=== PATIENT | female | born 1960 | race Caucasian/White ===

== ENCOUNTER 2023-08-26 15:57 | Outpatient (CLI) | payer OTHER, SELFPAY ==
[2023-08-26 16:37] LABS: CRP 9.8 mg/dL (0.0-0.9)
[2023-08-26 17:37] LABS: Erythrocyte Sedimentation Rate 43 mm/hr (0-20)
== END 2023-08-26 15:58 | disposition home or self-care (01) ==
LOC: CHSLAB 16:07
DX: T84.84XA Pain due to internal orthopedic prosthetic devices, implants and grafts, initial encounter (principal); T14.8XXA Other injury of unspecified body region, initial encounter; Z96.649 Presence of unspecified artificial hip joint
CPT/HCPCS: 36415; 85652; 86140

== ENCOUNTER 2024-08-17 11:50 | Emergency (ER) | payer OTHER, SELFPAY ==
--- NOTE | ~2024-08-17 | XR_ITS ---
XR hand LT min 3V 08/17/2024 12:23 Indication: Left hand pain Procedure: 3 views left hand Comparison: No prior studies for comparison. Findings: No fracture, subluxation or dislocation. There is anatomic alignment. No significant soft t issue abnormality. No foreign bodies. Impression: 1: No significant bone or joint abnormality. Reviewed, dictated and finalized at location A. Impression: 1: No significant bone or joint abnormality.
[2024-08-17 11:50] VITALS: BP 182/100; PULSE 92; RESP 16; TEMP 36.2; O2SAT 100
--- OUTSIDE RECORDS SUMMARY | 2024-08-17 12:00 | XMS_ITS | Clinical Summary ---
Author Organization [facility] Address [address] [place] [address] Care Team Providers Care Scheduling Assistant Name Role Phone Priscila Singleton APRN, PROFESSOR OF RADIOLOGY Unavailable [phone] Vi Oliveira DO Primary Care Provider [phone] Allergies No known active allergies Medications amitriptyline (ELAVIL) 25 MG Tablet Take 25 mg by mouth daily. Active amitriptyline (ELAVIL) 50 MG Tablet Take 50 mg by mouth nightly. Active Ascorbic Acid (Vitamin C) 1000 MG Tablet Take 1 Tablet by mouth daily. Active atorvastatin (LIPITOR) 40 MG Tablet Take 40 mg by mouth nightly. Active BIOTIN FORTE PO Take 1 Tablet by mouth daily. Active CALCIUM PO Take 1 Tablet by mouth daily. Active Cholecalciferol (Vitamin D) 2000 UNIT Tablet Take 1 Tablet by mouth nightly. Active levothyroxine (SYNTHROID) 137 MCG Tablet Take 137 mcg by mouth every morning (before breakfast). Active lisinopril (PRINIVIL, ZESTRIL) 5 MG Tablet Take 5 mg by mouth daily. Active Multiple Vitamin (MULTIVITAMIN PO) Take 1 Capsule by mouth daily. Active [place]-3 Fatty Acids (FISH OIL PO) Take 1 Capsule by mouth daily. Active omeprazole (PriLOSEC) 40 MG CAPSULE DELAYED RELEASE Take 40 mg by mouth daily. Active Potassium 99 MG Tablet Take 1 Tablet by mouth daily. Active propranolol (INDERAL LA) 120 MG CAPSULE SR 24 HR Take 120 mg by mouth nightly. Active vitamin B complex (DEXFOL) Tablet Take 1 Tablet by mouth nightly. Active VITAMIN E PO Take 1,000 Units by mouth daily. Active Social History Tobacco Use Types Packs/Day Years Used Date Smoking Tobacco: Former Cigarettes 2 25 1 982 - 2007 Smokeless Tobacco: Never Comments Unknown Sex and Gender Information Value Date Recorded Sex Assigned at Not on file Legal Sex Female 7:57 PM CDT Gender Identity Not on file Sexual Orientation Not on file Last Filed Vital Signs Vital Sign Reading Time Taken Comments Blood Pressure 160/100 07/06/2023 10:53 AM CDT Pulse 71 07/06/2023 10:53 AM CDT Temperature 36.2 C (97.2 F) 07/06/2023 10:53 AM CDT Respiratory Rate 16 07/06/2023 10:53 AM CDT Oxygen Saturation 96% 07/06/2023 10:53 AM CDT Inhaled Oxygen Concentration - - Weight 113.9 kg (251 lb) 07/10/2023 5:07 PM CDT Height 170.2 cm (5' 7) 07/10/2023 5:07 PM CDT Body Mass Index 39.31 07/10/2023 5:07 PM CDT Plan of Treatment Health Maintenance Due Date Last Done Comments Hepatitis C Virus (HCV) Screening 1962 Pap Smear 08/12/1983 Cervical Cancer Screening (CCS) 1992 HPV/Cotest 1992 Cologuard 2012 Immunochemical Fecal Occult Blood 2012 Mammogram 08/27/2023 08/26/2022, 1203/2019, 02/10/2020, Additional history exists SARS-COV-2 Immunization ( season) 2023 01/28/2023, 04/03/2021, 06/26/2020, Additional history exists Influenza Immunization (Season Ended) 2024 01/16/2022, 01/03/2021, 12/15/2019, Additional history exists Colonoscopy 05/19/2032 05/19/2022 Colorectal Cancer Screening 05/19/2032 05/19/2022 TdaP Immunization Completed 10/18/2013 Pneumococcal Immunization (50+ years) Completed 01/16/2022 Pneumococcal Immunization Combined Discontinued 01/16/2022 Respiratory Syncytial Virus (RSV) Immunization (Adult) Completed 01/28/2023 Zoster Immunization Completed 03/30/2023, 3 Hepatitis B Immunization Aged Out No longer eligible based on patient's age to complete this topic Human Papillomavirus (HPV) Immunization Aged Out No longer eligible based on patient's age to complete this topic Meningococcal Immunization (ACWY) Aged Out No longer eligible based on patient's age to complete this topic Rotavirus Immunization Aged Out No lo nger eligible based on patient's age to complete this topic Insurance [facility] Care Teams Scheduling Assistant Relationship Specialty Start Date End Date Vi Oliveira DO [address] [place] [address] PCP - General Primary Care 06/26/23 Priscila Singleton, [employer], PROFESSOR OF RADIOLOGY [address] [facility], [address] [place] [address] Nurse Practitioner Cardiology 06/26/23
--- OUTSIDE RECORDS SUMMARY | 2024-08-17 12:00 | XMS_ITS | Referral Summary ---
Author Organization [facility] Address [address] [place] [address] Care Team Providers Care Supervisor Fabrication Department Name Role Phone Kirby Resendiz MD Unavailable [phone] Karla Valle MD Unavailable Brendon Kapoor MD Unavailable Mannie Eden MD Unavailable [phone] Jie Boone Unavailable Bruno Ortega MD Unavailable Shakira Rivas NP Primary Care Provider Encounters Date Type Department Care Team Description 07/21/2024 Telephone [facility] [address] [facility] [address] [place] [address] Michelle Eli 07/20/2024 Telephone [facility] [address] [facility] [address] [place] [address] Michelle Eli 07/18/2024 Orders Only [facility] [place] [address] [facility] [address] [place] [address] Shakira Rivas NP Well woman exam (Primary Dx) 07/18/2024 4:00 PM CDT Office Visit [facility] Primary Care at [address] [place] [address] Shakira Rivas NP Establishing care with new doctor, encounter for (Primary Dx); Primary hypertension; Pre-diabetes; Acquired hypothyroidism; Pure hypercholesterolemia ; Irritable bowel syndrome with diarrhea; Gastroesophageal reflux disease, unspecified whether esophagitis present; Class 3 severe obesity due to excess calories without serious comorbidity with body mass index (BMI) of 40.0 to 44.9 in adult 06/14/2024 Results Follow-Up [facility] [address] [place] [address] Medical Office Building [address], [address] [place] [address] Cheryl Joy RN Surgical pathology 06/13/2024 8:00 AM CDT - 06/13/2024 8:30 AM CDT Surgery [facility] [address] [place] [address] [phone] Kirby Resendiz MD COLON REMOVAL SNARE 06/13/2024 7:59 AM CDT Anesthesia Event [facility] [address] [place] [address] [phone] Ghanshyam Sanders MD 06/13/2024 6:56 AM CDT - 06/13/2024 9:00 AM CDT Hospital Encounter [facility] [address] [place] [address] [phone] Kirby Resendiz MD Hx of colonic polyps Discharge Disposition: Discharge to home or self care from Last 3 Months Allergies No known active allergies Medications biotin 5,000 mcg tablet,disintegrating 1 tab daily 0 0 05/13/19 17 Active calcium (CALCIO SHAIELSH) 500 mg tablet 500 mg. 0 12/04/19 12 Active multivitamin capsuleIndications:Gabbie min Deficiency Prevention Take 1 capsule by mouth nightly Active vitamin b complex tabletIndications:Vitam in Deficiency Prevention Take 1 tablet by mouth nightly Active cholecalciferol (VITAMIN D-3) 2000 unit capsuleIndications:prev ent Vit D deficiency Take 1 capsule (2,000 Units total) by mouth nightly Active ascorbic acid (VITAMIN C) 1,000 mg tablet Take 1 tablet (1,000 mg total) by mouth daily Active potassium 99 mg tablet Take by mouth Active vitamin E 1,000 unit capsuleIndications:[employer] Take 1 capsule (1,000 Units total) by mouth nightly 11/06/19 24 029 Active omega 9-lyl-lxz-fish oil 1,000 mg (120 mg-180 mg) capsuleIndications:uberVU [facility] [employer] Take 1 capsule (1,000 mg total) by mouth nightly 11/06/19 24 029 Active lisinopriL (PRINIVIL,ZESTRIL) 5 mg tabletIndications:Prima ry hypertension TAKE ONE TABLET BY MOUTH DAILY 90 tablet 3 01/08/20 24 Active amitriptyline (ELAVIL) 25 mg tablet TAKE ONE TABLET BY MOUTH EVERY MORNING 30 tablet 6 04/11/19 25 Active sodium, potassium & mag sulfates (SUPREP BOWEL KIT) 17.5-3.13-1.6 gram recon solnIndications:Bowel Evacuation PLEASE TAKE THE 1ST BOTTLE AT 6 PM THE DAY BEFORE THE PROCEDURE AND THE SECOND BOTTLE 6 HOURS BEFORE LEAVING HOME IN THE MORNING 354 mL 04/21/19 25 Active loperamide (IMODIUM) 2 mg capsule TAKE ONE CAPSULE BY MOUTH FOUR TIMES A DAY NEEDED 30 capsule 6 06/16/19 25 Active omeprazole (PriLOSEC) 40 mg capsule TAKE ONE CAPSULE BY MOUTH DAILY 30 capsule 3 06/16/19 25 Active amitriptyline (ELAVIL) 50 mg tabletIndications:Irrit able bowel syndrome with diarrhea TAKE ONE TABLET BY MOUTH BEDTIME 30 tablet 6 07/14/19 25 Active levothyroxine (SYNTHROID) 137 mcg tabletIndications:Acqui red hypothyroidism Take 1 tablet (137 mcg total) by mouth electrical contacts adjuster before breakfast 90 tablet 3 07/19/19 25 026 Active atorvastatin (LIPITOR) 40 mg tabletIndications:Pure hypercholesterolemia Take 1 tablet (40 mg total) by mouth daily 90 tablet 3 07/19/19 25 026 Active Active Problems Problem Noted Date Diagnosed Date Hx of colonic polyps 04/21/2024 S/P hip replacement, right 03/30/2024 Pre-diabetes 09/28/2023 Assessment & Plan (07/18/2024 4:20 PM CDT): Lab Results Component Value Date HGBA1C 5.9 (H) 04/05/2024 -chronic, controlled -patient currently does not require medication -most recent hemoglobin A1c shown above -will recheck lab work -continue current treatment plan Assessment & Plan (03/30/2024 4:00 PM DRAFTER PLUMBING): - chronic condition - noted on chart review - patient reports family history of diabetes - will continue to monitor close - has outstanding labs to be done after this visit, continue current management Lab Results Component Value Date HGBA1C 5.8 (H) 06/18/2023 HGBA1C 5.9 (H) 01/27/2023 HGBA1C 5.9 (H) 01/20/2022 Lab Results Component Value Date MICROALBUR <2.0 12/18/2016 LDLCALC 61 01/27/2023 CREATININE 0.83 11/06/2023 Assessment & Plan (09/28/2023 4:51 PM CDT): - chronic condition - noted on chart review - patient reports family history of diabetes - will continue to monitor close Lab Results Component Value Date HGBA1C 5.8 (H) 06/18/2023 HGBA1C 5.9 (H) 01/27/2023 HGBA1C 5.9 (H) 01/20/2022 Lab Results Component Value Date MICROALBUR <2.0 12/18/2016 LDLCALC 61 01/27/2023 CREATININE 0.76 06/18/2023 Abnormal resting ECG findings 06/22/2023 Primary hypertension 02/07/2023 Assessment & Plan (07/18/2024 4:12 PM CDT): BP Readings from Last 3 Encounters: 07/18/24 124/82 06/13/24 (!) 171/78 03/30/24 140/70 -chronic, at goal of <140/90 -currently taking lisinopril 5 mg daily -patient reports checking blood pressure regularly at home which has been doing good -encourage patient to continue low-sodium diet -Will trial holding lisinopril, encouraged patient to reach out to office if blood pressure consistently runs over 140/90 -continue current treatment plan Assessment & Plan (03/30/2024 4:00 PM DRAFTER PLUMBING): Blood Pressure Management BP Readings from Last 3 Encounters: 03/30/24 140/70 11/12/23 139/76 11/06/23 142/52 Chronic condition Status - is adequately controlled. Current medications are: Lisinopril 5 mg daily only (states she was started prior to getting hip replacement, thinks she does not need at, reports good home blood pressure readings) Patient is compliant with medications. Patient denies any side effects or adverse side effects from the medication/s. Follow a low salt diet Monitor blood pressure regularly at home - has outstanding labs to be done after this visit, continue current management The 10-year ASCVD risk score (Eryn PARRISH, et al., 2019) is: 5.5% Values used to calculate the score: Age: 63 years Sex: Female Is Non- : No Diabetic: No Tobacco smoker: No Systolic Blood Pressure: 140 mmHg Is BP treated: Yes HDL Cholesterol: 42 mg/dL Total Cholesterol: 147 mg/dL Lab Results Component Value Date LDLCALC 61 01/27/2023 Lab Results Component Value Date GLUCOSE 115 11/06/2023 CALCIUM 8.8 11/06/2023 SODIUM 141 11/06/2023 POTASSIUM 4.2 11/06/2023 CO2 25 11/06/2023 CHLORIDE 104 11/06/2023 BUNSER 13 11/06/2023 CREATININE 0.83 11/06/2023 Assessment & Plan (09/28/2023 3:52 PM CDT): Blood Pressure Management BP Readings from Last 3 Encounters: 09/28/23 120/60 09/24/23 139/85 09/08/23 161/97 Chronic condition Status - is adequately controlled. Current medications are: Lisinopril 5 mg daily only (states she was started prior to getting hip replacement, thinks she does not need at, reports good home blood pressure readings) Patient is compliant with medications. Patient denies any side effects or adverse side effects from the medication/s. Follow a low salt diet Monitor blood pressure regularly at home Continue current management unless change made above The 10-year ASCVD risk score (Eryn PARRISH, et al., 2019) is: 4.1% Values used to calculate the score: Age: 63 years Sex: Female Is Non- : No Diabetic: No Tobacco smoker: No Systolic Blood Pressure: 120 mmHg Is BP treated: Yes HDL Cholesterol: 42 mg/dL Total Cholesterol: 147 mg/dL Lab Results Component Value Date LDLCALC 61 01/27/2023 Lab Results Component Value Date GLUCOSE 81 06/18/2023 CALCIUM 9.2 06/18/2023 SODIUM 140 06/18/2023 POTASSIUM 4.4 06/18/2023 CO2 28 06/18/2023 CHLORIDE 103 06/18/2023 BUNSER 14 06/18/2023 CREATININE 0.76 06/18/2023 Assessment & Plan (02/07/2023 1:24 PM DRAFTER PLUMBING): Elevated, trial of lisinopril. BP goal < 140/90. Simple chronic bronchitis 01/16/2022 Assessment & Plan (01/22/2022 8:23 PM DRAFTER PLUMBING): Asymptomatic. At baseline. Cont current meds. Class 3 severe obesity due t o excess calories without serious comorbidity with body mass index (BMI) of 40.0 to 44.9 in adult 01/15/2021 Assessment & Plan (07/18/2024 4:20 PM CDT): Wt Readings from Last 3 Encounters: 07/18/24 118.6 kg (261 lb 6.4 oz) 06/13/24 117.9 kg (260 lb) 03/30/24 116.1 kg (256 lb) Body mass index is 40.93 kg/m . -Stable, not at goal of <30 bmi -Discussed recommendations for exercise at least 30 minutes moderate to vigorous exercise as tolerated most days of the week. (minimum 150 minutes weekly) -Discussed importance of well-balanced diet Assessment & Plan (03/30/2024 3:46 PM DRAFTER PLUMBING): Wt Readings from Last 3 Encounters: 03/30/24 116.1 kg (256 lb) 11/12/23 110.7 kg (244 lb) 11/06/23 110.8 kg (244 lb 3.2 oz) Body mass index is 38.93 kg/m . - chronic condition, not at goal, some weight gainnoted - BMI Follow-up includes: nutrition counseling, exercise counseling and education provided - Recommend to exercise at least 30 minutes moderate to vigorous exercise most days of the week. (minimum 150 minutes weekly) - Comorbidity - hypertension, hyperlipidemia Assessment & Plan (09/28/2023 3:54 PM CDT): Wt Readings from Last 3 Encounters: 09/28/23 110.6 kg (243 lb 12.8 oz) 09/24/23 111.1 kg (245 lb) 09/08/23 109.3 kg (241 lb) Body mass index is 40.57 kg/m . - chronic condition, not at goal - BMI Follow-up includes: nutrition counseling, exercise counseling and education provided - Recommend to exercise at least 30 minutes moderate to vigorous exercise most days of the week. (minimum 150 minutes weekly) - Comorbidity - hypertension, hyperlipidemia Assessment & Plan (02/07/2023 1:22 PM DRAFTER PLUMBING): Weight reduction, daily exercise and dietary modifications recommended., as obesity can complicate their hypercholesterolemia Assessment & Plan (07/23/2022 10:43 AM CDT): Weight reduction, daily exercise and dietary modifications recommended., as obesity can complicate their hypercholesterolemia Assessment & Plan (01/22/2022 8:23 PM DRAFTER PLUMBING): Weight reduction, daily exercise and dietary modifications recommended., as obesity can complicate their hypercholesterolemia Assessment & Plan (01/15/2021 5:46 PM CDT): Weight reduction, daily exercise and dietary modifications recommended. GERD (gastroesophageal reflux disease) Assessment & Plan (07/18/2024 4:22 PM CDT): -chronic, controlled -patient currently takes omeprazole 40 mg daily -Follows with GI -patient encouraged to continue avoiding trigger foods and remaining upright at least 30 minutes after eating or drinking -continue current treatment plan Migraine without aura and wi thout status migrainosus, not intractable 09/07/2020 Assessment & Plan (03/30/2024 3:51 PM DRAFTER PLUMBING): - chronic condition, stable status - no longer using Propranolol LA 120 mg nightly - currently on Amitriptyline 50 mg nightly and 25 mg am via GI provider The current medical regimen is effective; continue present plan and medications. Assessment & Plan (09/28/2023 4:01 PM CDT): - chronic condition, stable status - no longer using Propranolol LA 120 mg nightly - currently on Amitriptyline 50 mg nightly and 25 mg am via GI provider - continue current management Assessment & Plan (07/23/2022 10:46 AM CDT): Stable. Cont. Current prescription medications, Maxalt. Assessment & Plan (01/22/2022 8:23 PM DRAFTER PLUMBING): Clinically improved, continue current prescription medications. Assessment & Plan (01/15/2021 5:45 PM CDT): Stable. Cont. Current prescription medications. Assessment & Plan (09/07/2020 5:08 PM CDT): Improved. Cont current mgmt. Irritable bowel syndrome with diarrhea 7 Overview (03/30/2024): Follows with GI Assessment & Plan (07/18/2024 4:21 PM CDT): -Chronic, controlled -Currently takes amitriptyline 25 mg in the morning, 50 mg at night, Imodium 2 mg daily -Follows with GI -Up-to-date on colonoscopies -Continue current treatment plan with specialists Assessment & Plan (03/30/2024 3:54 PM DRAFTER PLUMBING): - chronic condition, stable - follows with GI - amitriptyilne 50 mg night and 25 mg in the am from Gi provider,for pain and discomfort, on Omeprazole 40 mg daily for GERD, Loperamide/imodium as needed for diarrhea - The current medical regimen is effective; continue present plan and medications. Assessment & Plan (09/28/2023 3:59 PM CDT): - follows with GI - amitriptyilne 50 mg night and 25 mg in the am from Gi provider,for pain and discomfort, on Omeprazole 40 mg daily for GERD, Loperamide/imodium as needed for diarrhea H/O gastric ulcer 12/18/2016 Assessment & Plan (03/30/2024 3:58 PM DRAFTER PLUMBING): - hx of gastric ulcer, reportedly secondary to H, Pylori - follows with GI - currently on omeprazole 40 mg daily - The current medical regimen is effective; continue present plan and medications. Assessment & Plan (09/28/2023 4:49 PM CDT): - hx of gastric ulcer, reportedly secondary to H, Pylori - follows with GI - currently on omeprazole 40 mg daily Assessment & Plan (09/07/2020 5:10 PM CDT): Asx. Cont current meds. Vitamin D deficiency 05/27/2016 Overview (04/06/2024): 04/09 - For your vitamin D please increase your vitamin D from 2000 international units daily to 4000 international units daily Assessment & Plan (09/28/2023 3:56 PM CDT): Chronic condition, well controlled Asymptomatic, Most recent labs as shown below continue vitaming D 2000 international units daily supplements. Lab Results Component Value Date 25HYDROVITD 47 01/27/2023 25HYDROVITD 47 07/22/2022 25HYDROVITD 39 09/07/2020 25HYDROVITD 23 (L) 05/15/2016 Assessment & Plan (02/07/2023 1:21 PM DRAFTER PLUMBING): Asymptomatic, continue vit d supplements. Assessment & Plan (07/23/2022 10:45 AM CDT): Asx. Cont vitamin D supplement. Labs ordered, will follow. Pure hypercholesterolemia 05/13/2016 Assessment & Plan (07/18/2024 4:11 PM CDT): -chronic, controlled -currently takes atorvastatin 40 mg -Discussed importance of well-balanced diet -will recheck lab values at future visits -refill of medication provided -continue current treatment plan Assessment & Plan (03/30/2024 3:47 PM DRAFTER PLUMBING): - chronic condition - status: is adequately controlled. - current management/medications: Atorvastatin 40 mg nightly - other comorbid conditions:obesity, hypertension - patient is compliant with medications. - most recent LDL as shown below - maintain a healthy weight, diet - will monitor closely - continue current management Lab Results Component Value Date LDLCALC 61 01/27/2023 Lab Results Component Value Date ALT 35 11/05/2023 AST 25 11/05/2023 ALKPHOS 114 11/05/2023 BILITOT 0.3 11/05/2023 Assessment & Plan (09/28/2023 3:55 PM CDT): - chronic condition - status: is adequately controlled. - current management/medications: Atorvastatin 40 mg nightly - other comorbid conditions:obesity, hypertension - patient is compliant with medications. - most recent LDL as shown below - maintain a healthy weight, diet - will monitor closely - continue current management Lab Results Component Value Date LDLCALC 61 01/27/2023 Lab Results Component Value Date ALT 33 06/18/2023 AST 25 06/18/2023 ALKPHOS 108 06/18/2023 BILITOT 0.3 06/18/2023 Assessment & Plan (02/07/2023 1:20 PM DRAFTER PLUMBING): LDL at goal of less than 100, continue current prescription medications, atorvastatin. Assessment & Plan (07/23/2022 10:47 AM CDT): LDL at goal of less than 100, continue current prescription medications, atorvastatin. Assessment & Plan (01/22/2022 8:24 PM DRAFTER PLUMBING): LDL at goal of less than 100, continue current prescription medications. Assessment & Plan (01/15/2021 5:45 PM CDT): LDL at goal of less than 100. Continue current prescription medications. Assessment & Plan (09/07/2020 5:08 PM CDT): LDL is in a great range, cont current mgmt. Cyst of ovary 05/13/2016 Overview (06/21/2016): Cyst of ovary, unspecified laterality History of malignant neoplas m of rectum, rectosigmoid junction, and anus 05/13/2016 Assessment & Plan (03/30/2024 3:55 PM DRAFTER PLUMBING): - Personal hx-rectal/anal malignancy, H/o chemo and radiation therapy in 2007 at age <50 - follows with GI provider - up to date with colonoscopy, see below, repeat Colonoscopy due on 05/2024 reminder provided Colonoscopy 05/2022 Impression: - Diverticulosis in the recto-sigmoid colon and in the sigmoid colon. - The examination was otherwise normal on direct and retroflexion views. Recommendation: - Return to referring physician as previously scheduled. - Repeat colonoscopy in 2 years for surveillance. Assessment & Plan (09/28/2023 4:50 PM CDT): - Personal hx-rectal/anal malignancy, H/o chemo and radiation therapy in 2007 at age <50 - follows with GI provider - up to date with colonoscopy, see below Colonoscopy 05/2022 Impression: - Diverticulosis in the recto-sigmoid colon and in the sigmoid colon. - The examination was otherwise normal on direct and retroflexion views. Recommendation: - Return to referring physician as previously scheduled. - Repeat colonoscopy in 2 years for surveillance. Solitary pulmonary nodule 05/13/2016 Assessment & Plan (09/07/2020 5:09 PM CDT): Failed to follow-up with pulmonology. Encouraged patient to follow-up with pulmonology. Recurrent herpes labialis 05/13/2016 Liver lesion, right lobe 10/25/2015 Overview (09/07/2020): 1.[address] MR ordered. Ovarian cyst, left 10/25/2015 Overview (09/07/2020): 5.[address] scan. Pelvic ultrasound ordered. Will refer to game moderator Incidental pulmonary nodule, > 3mm and < 8mm 01/2016 Overview (09/07/2020): 5 mm right middle lobe. Radiologist recommends 1 year f/u ct Acquired hypothyroidism 03/15/2013 Assessment & Plan (07/18/2024 4:12 PM CDT): Lab Results Component Value Date TSH 0.94 04/05/2024 -chronic, controlled -patient currently takes Synthroid 137 mcg daily -Follows with endocrinology -most recent TSH within normal range -Will recheck lab values at next visit -refill of medication provided -continue current treatment plan Assessment & Plan (03/30/2024 4:00 PM DRAFTER PLUMBING): Chronic condition. Asymptomatic. Stable. Continue current prescription medications, levothyroxine 137 mcg daily. - has outstanding labs to be done after this visit, continue current management Lab Results Component Value Date TSH 3.41 01/27/2023 Assessment & Plan (09/28/2023 3:50 PM CDT): Chronic condition. Asymptomatic. Stable. Continue current prescription medications, levothyroxine 137 mcg daily. Lab Results Component Value Date TSH 3.41 01/27/2023 Assessment & Plan (02/07/2023 1:20 PM DRAFTER PLUMBING): Asymptomatic. Stable. Continue current prescription medications, levothyroxine. Assessment & Plan (07/23/2022 10:46 AM CDT): Stable. Cont. Current prescription medications, levothyroxine. Assessment & Plan (01/22/2022 8:23 PM DRAFTER PLUMBING): Asymptomatic. Stable. Continue current prescription medications. Assessment & Plan (01/15/2021 5:45 PM CDT): Asymptomatic. Stable. Continue current prescription medications. Assessment & Plan (09/07/2020 5:08 PM CDT): Stable. Cont. Current meds. Resolved Problems Problem Noted Date Diagnosed Date Resolved Date Wound infection 11/06/2023 03/30/2024 Aftercare following right hi p joint replacement surgery 08/27/2023 09/28/2023 Primary osteoarthritis of hip 06/22/2023 09/28/2023 Pain of right hip 07/23/2022 09/28/2023 Assessment & Plan (07/23/2022 10:43 AM CDT): Xrays ordered, will follow. Acute pain of right knee 07/23/2022 Assessment & Plan (07/23/2022 10:43 AM CDT): Xrays ordered, will follow. Anal fissure 06/03/2021 01/16/2022 Overview (06/03/2021): Added automatically from request for surgery [id number] Elevated LFTs 01/15/2021 09/28/2023 Assessment & Plan (02/07/2023 1:21 PM DRAFTER PLUMBING): ALT near normal, asymptomatic, will continue to follow. Assessment & Plan (01/15/2021 5:45 PM CDT): Asymptomatic. Patient has a known diagnosis of fatty liver. Will follow. Anal pain 12/07/2020 01/16/2022 Abnormal mammogram of both breasts 04/05/2020 09/28/2023 Diarrhea 12/27/2019 09/07/2020 BRBPR (bright red blood per rectum) 12/27/2019 07/22/2022 Encounter for colonoscopy du e to history of colon cancer 09/08/2019 09/07/2020 Overview (09/08/2019): Added automatically from request for surgery [id number] Thoracic arthritis 05/23/2019 4 Lung cyst 05/23/2019 09/07/2020 Bloating 06/11/2018 09/07/2020 Other constipation 06/11/2018 1 Depression with anxiety 03/31/2018 0607/2020 Situational mixed anxiety an d depressive disorder 12/04/2017 01/22/2023 Adjustment insomnia 10/01/2017 09/28/19 24 Right carpal tunnel syndrome 04/07/2017 09/28/2023 Migraine without aura and wi thout status migrainosus, not intractable 12/18/2016 09/07/2020 Gastric ulcer 12/18/2016 09/07/2020 Abdominal pain 12/18/2016 09/07/2020 Chronic low back pain 12/18/20162024 History of therapeutic radiation 09/05/2016 10/01/2017 Hypertriglyceridemia 05/27/2016 021 Overview (08/08/2016): Hypertriglyceridemia Breast neoplasm screening status 05/13/2016 12/18/2016 Overview (06/21/2016): Breast cancer screening Asymptomatic varicose veins 07/30/2013 09/28/2023 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 03/15/2013 09/28/2023 Generalized osteoarthritis 03/15/2013 0 09/28/2023 Immunizations Immunization Administration Dates Next Due Influenza, Quadrivalent, Spl it, Preservative Free, Intradermal 01/15/2016 Influenza, Quadrivalent, Spl it, Preservative Free, Intramuscular 01/16/2022,11/16/2018,12/03/2017,12/18 Influenza, Split 11/28/2010 Influenza, Trivalent, IM (MDV) 5,01/04/2014,01/23/2013,12/11 Influenza, Trivalent, Preser vative Free, Intramuscular 03/30/2024,11/14/2012 Influenza, Unspecified 01/25/2023(Deferr ed: Patient Refused),01/03/2021,12/15/2019, 015,01/23/2013 Pfizer SARS-CoV-2 Monovalent Vaccination (12+ Yrs) PURPLE 06/26/2020,06/05/2020 Pneumococcal Conjugate Pcv20 01/16/2022 RSV Vaccine, Pref, Recombina nt, Subunit, Adjuvanted, PF, IM (Arexvy) 01/28/2023 Tdap 10/18/2013 ZOSTER Recombinant 03/30/2023,01/28/2023 Social History Tobacco Use Types Packs/Day Years Used Date Smoking Tobacco: Former Cigarettes 1 29.7 0 03/16/1977 - 11/12/2006 Smokeless Tobacco: Never Tobacco Cessation:Counseling Given: Yes Alcohol Use Standard Drinks/Week Comments No 0 (1 standard drink = 0.6 oz pur e alcohol) [facility] [employer] Answer Date Recorded In the past 12 months has th e [employer], gas, oil, or water company threatened to shut off services in your home? No 11/06/2023 Social Connection and Isolat ion Panel [NHANES] Answer Date Recorded In a typical week, how many times do you talk on the phone with family, friends, or neighbors? More than three times a week 11/06/2023 How often do you get togethe r with friends or relatives? More than three times a week 11/06/2023 How often do you attend chur ch or nondenominational services? Never 11/06/2023 Do you belong to any clubs o r organizations such as orthodox groups, unions, fraternal or athletic groups, or school groups? No 11/06/2023 How often do you attend meet ings of the clubs or organizations you belong to? Never 11/06/2023 Are you , , di vorced, , never , or living with a partner? Living with partner 11/06/2023 AUDIT-C Answer Date Recorded Q1: How often do you have a drink containing alcohol? Never 07/18/2024 Q2: How many drinks containi ng alcohol do you have on a typical day when you are drinking? Patient does not drink Q3: How often do you have si x or more drinks on one occasion? Never 07/18/2024 Overall Financial Resource Strain (CARDIA) Answe r Date Recorded How hard is it for you to pa y for the very basics like food, housing, medical care, and heating? Not very hard 11/06/2023 PHQ-2 Answer Date Recorded PHQ-2 Total Score (If total score is 3 or more points, staff should administer the PHQ-9) 0 07/18/2024 Hunger Vital Sign Answer Date Recorded Within the past 12 months, y ou worried that your food would run out before you got the money to buy more. Never true 11/06/19 24 Within the past 12 months, t he food you bought just didn't last and you didn't have money to get more. Never true 11/06/2023 PRAPARE - Transportation Answer Date Re corded In the past 12 months, has l ack of transportation kept you from medical appointments or from getting medications? No 10/15 In the past 12 months, has l ack of transportation kept you from meetings, work, or from getting things needed for daily living? No 11/06/2023 Housing Stability Vital Sign Answer Francis e Recorded In the last 12 months, was t here a time when you were not able to pay the mortgage or rent on time? No 11/06/2023 In the past 12 months, how m any times have you moved where you were living? 0 11/06/2023 At any time in the past 12 m [facility], were you homeless or living in a nursing home (including now)? No 11/06/2023 Personal Safety Answer Date Recorded Have you ever been in or are you currently in a harmful physical or emotional relationship or is someone making you feel afraid or unsafe? Denies 06/13/2024 Education Answer Date Recorded What is the highest level of school you have completed or the highest degree you have received? 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 Gender Identity Female 12/22/2019 9:38 AM CDT Sexual Orientation Choose not to disclose 2019 9:38 AM CDT Sexual Orientation Straight 12/22/2019 9: 38 AM CDT Last Filed Vital Signs Vital Sign Reading Time Taken Comments Blood Pressure 124/82 07/18/2024 3:08 PM CDT Pulse 70 07/18/2024 3:08 PM CDT Temperature 36.1 C (97 F) 06/13/2024 7:22 AM CDT Respiratory Rate 18 07/18/2024 3:08 PM CDT Oxygen Saturation 96% 07/18/2024 3:08 PM CDT Inhaled Oxygen Concentration - - Weight 118.6 kg (261 lb 6.4 oz) 07/18/2024 3:08 PM CDT Height 170.2 cm (5' 7.01) 07/18/2024 3:08 PM CD T Body Mass Index 40.93 07/18/2024 3:08 PM CDT Plan of Treatment Not on file Medical Devices Implanted Type Area Aerospace Project Engineer Device Identifier Shelf Expiration Date Model / Serial / Lot [employer] [place] 54mm 36mm Hip Neutral Liner Acetabular Altrx Sterile Latex Free [id number] - [id number] Implanted:Qty: 1 on 07/17/2023 by Bruno Ortega MD at [facility] Right: Hip [employer] [id number] 05/13/2028 [id number] / / [id number] [employer] [place] 54mm Sector Hip Shell Acetabular Gription Sterile Latex Free [id number] - [id number] Implanted:Qty: 1 on 07/17/2023 by Bruno Ortega MD at [facility] Right: Hip [employer] [id number] 04/15/2033 [id number] / / [id number] [employer] [place] Collar Hip 4 High Offset Stem Femoral [id number] - Sn/A - [id number] Implanted:Qty: 1 on 07/17/2023 by Bruno Ortega MD at [facility] Right: Hip [employer] [id number] 06/13/2033 [id number] / N/A / [id number] [employer] Articul/Gerry 36mm Cementless Hip +1.5mm 12/14 Taper Head Femoral Latex Free [id number] - [id number] Implanted:Qty: 1 on 07/17/2023 by Bruno Ortega MD at [facility] Right: Hip [employer] [id number] 05/13/2028 [id number] / / [id number] Procedures Procedure Name Priority Date/Time Associated Diagnosis Comments SURGICAL PATHOLOGY Routine 06/13/2024 8: 14 AM CDT Hx of colonic polyps COLON REMOVAL SNARE 06/13/2024 8 :00 AM CDT Hx of colonic polyps COLONOSCOPY 06/13/2024 7:54 AM CDT SCREENING MAMMOGRAM BILATERAL W MARYANN Schedule Routine, Read Routine (OP Routine) 11/19/2023 3:09 PM CDT Encounter for screening mammogram for malignant neoplasm of breast HEPATITIS C SCREENING Routine 11/22/2015 from Last 3 Months or Most Recently Relevant to Health Maintenance Results * Surgical pathology (06/13/2024 8:14 AM CDT) Tissue specimen (specimen) (Polyp(s), colon/colorectal, esophageal, gastric) 06/13/2024 8:14 AM CDT Narrative PATHOLOGY [facility] - 06/14/2024 1:12 PM CDT [address] [address] Tele: Kathy Méndez MD - Rotary Drum Tanner Note to Patients: This report may contain a detailed description of human tissue sent by a health care provider to the laboratory for pathologic evaluation. The content of this report is essential for diagnosis and may provide important critical findings. This information may be unfamiliar to patients to review without a medical professional present. It is advised that the patient review this report in the presence of a health care provider who can answer questions and explain the details. SURGICAL PATHOLOGY REPORT Patient Name: ADAM BARDALES Address: [address] [place] [address]- Gender: F : 1960 (Age: 63) Service: Gastro Location: [facility], Hospital #: [id number] Patient Type: [facility] Taken: 06/13/2024 Received 06/13/2024 Reported: 06/14/2024 Physician(s): Kirby Resendiz M.D. Vladimir Kessler M.D. Vi Oliveira D.O. DIAGNOSIS: Colon, polypectomy: - Polypoid mucosa with no histopathologic abnormality jap/06/14/2024 13:12 Examining Pathologist: Kadeem Gustafson M.D. Report Reviewed and Electronically Signed By Kadeem Gustafson M.D. SPECIMEN TYPE: A: COLON POLYPS CLINICAL IMPRESSION AND HISTORY: High-risk colon cancer surveillance: Personal history of colon cancer. Findings include diverticulosis in the sigmoid colon, two 3-4 mm polyps in the transverse colon and ascending colon. GROSS DESCRIPTION: Received in formalin labeled ADAM STOCKERT and colon polyps are multiple rosen tissue fragments, 1.4 x 0.2 x 0.2 cm in aggregate. The specimen is filtered and entirely submitted in A1. jxi/06/13/2024 12:50 JAP,JXI MICROSCOPIC DESCRIPTION: Sections from the colon polyps are multiple polypoid mucosal fragments with no distinct histopathologic abnormality. Deeper levels are reviewed. Clerical Data Follows A; 30912 REPORT IMAGES AND/OR SCANNED DOCUMENTS ONLY VIEWABLE IN PDF FORMAT The immunohistochemical test(s) cited in this report, if any, was developed and its performance characteristics determined by [facility] Pathology Department. It has not been cleared or approved by the U.S. Food and Drug Administration. The FDA has determined that such clearance or approval is not necessary. This test is used for clinical purposes. It should not be regarded as investigational or for research. [facility] Laboratory is certified under the Clinical Laboratory Improvement Amendments of 1988 (CLIA) as qualified to perform high complexity testing. Immunostains were performed on formalin-fixed paraffin embedded tissue using a polymer diaminobenzidine chromogen detection system. Antibodies used may include clone SP1 (rabbit monoclonal, estrogen receptor), clone 1E2 (rabbit monoclonal progesterone receptor), Ki-67 (rabbit monoclonal, 30-9), CD117 (rabbit polyclonal, c-kit), and anti-Her-2/cassandra (4B5) (rabbit monoclonal primary antibody). In the event that immunohistochemistry or special stains have been performed, attending physician has confirmed appropriateness of controls. Frozen section, operating room consultation, gross examination and dissection, and case sign out may have been performed in part or completely in the following laboratories: [facility], [address] [facility], [address], [address], [place] [address]. us Kirby Resendiz MD LAB PATHOLOGY ORDERABLES F inal Result PATHOLOGY [facility] Laboratory Receiving [address] [place] [address] * Colonoscopy (06/13/2024 7:54 AM CDT) Anatomical Region Laterality Modality Other Narrative Procedure Note Kirby Resendiz MD - 06/13/2024 7:54 AM CDT ENDOSCOPY LAB Patient Name: Adam Bardales Procedure Date: 06/13/2024 7:54 AM Admit Type: Outpatient Room: [facility] Date of : 1960 Instrument Name: [id number] Gender: Female Note Status: Finalized Procedure: Colonoscopy Indications: High risk colon cancer surveillance: Personalhistory of colon cancer Providers: Kirby Resendiz M.D. Referring MD: Vi Oliveira D.O. Medicines: Monitored Anesthesia Care Complications: No immediate complications. Estimated Blood Loss: Estimated blood loss: none. Procedure: Pre-Anesthesia Assessment: - The risks and benefits of the procedure and the sedation options and risks were discussed with the patient. All questions were answered and informed consent was obtained. - Immediately prior to administration ofmedications, the patient was re-assessed for adequacy to receive sedatives. The benefits, risks and alternatives of theprocedure and sedation were discussed and informed consentwas obtained. All questions were answered. Please referto the signed informed consent document in the medical record. The scope was passed under direct vision.The Colonoscope was introduced through the anus and advanced to the cecum, identified by appendiceal orifice and ileocecal valve. The colonoscopy was performed without difficulty. The patient tolerated the procedure well. The quality of the bowel preparation was adequate. The bowel preparationused was GoLYTELY via split dose instruction. Findings: The perianal and digital rectal examinations were normal. A few small-mouthed diverticula were found in the sigmoid colon. Two sessile polyps were found in the transverse colon and ascending colon. The polyps were 3 to 4 mm in size. These polyps were removedwith a cold snare. Resection and retrieval were complete. The exam was otherwise without abnormality. Impression: - Diverticulosis in the sigmoid colon. - Two 3 to 4 mm polyps in the transverse colon andin the ascending colon, removed with a cold snare. Resected and retrieved. - The examination was otherwise normal. Recommendation: - Return to referring physician as previously scheduled. - Await pathology results. - Repeat colonoscopy in 2 years for surveillance. Attending Participation: I personally performed the entire procedure. Electronically signed by Kirby Resendiz M.D. Kirby Resendiz M.D. 06/13/2024 8:27:26 AM This document was signed electronically. Number of Addenda: 0 Note Initiated On: 06/13/2024 7:54 AM Scope Withdrawal Time: 0 hours 6 minutes 35 seconds Scope In: 8:04:40 AM Scope Out: 8:17:14 AM us Kirby Resendiz MD ENDOSCOPY PROCEDURES Final Result * SCREENING MAMMOGRAM BILATERAL W MARYANN (11/19/2023 3:09 PM CDT) Anatomical Region Laterality Modality Breast Bilateral Mammography 11/19/2023 3:25 PM CDT Impressions 11/19/2023 3:25 PM CDT There is no mammographic evidence of malignancy. A 1 year screening mammogram is recommended. BI-RADS: 1 - Negative. The patient has been or will be contacted. The patient will be entered into a reminder system with a target due date of 1 year for her next mammogram. Electronically signed by: PATRICK Villanueva 11/19/2023 3:25 PM CDT EXAMINATION: SCREENING MAMMOGRAM BILATERAL W MARYANN ORDERING HEALTHCARE PROVIDER: VLADIMIR KESSLER HISTORY: Routine screening mammography. COMPARISON: 08/26/2022, 02/10/2020, 09/11/2018. TECHNIQUE: CC and MLO views of both breasts were obtained with digital technique using digital breast tomosynthesis with C view. Computer aided detection was utilized. FINDINGS: DENSITY: The breasts have scattered areas of fibroglandular density. BREASTS: There is no new suspicious finding in either breast on mammogram. Result [facility] Vladimir Kessler MD IMG MAMMO PROCEDURES Fi nal Result * HEPATITIS C SCREENING (11/22/2015) HEP C Normal Result [facility] Historical Provider HEALTH MAINTENANCE Final Result from Last 3 Months or Most Recently Relevant to Health Maintenance Insurance [facility] H[facility]/PPO Address: [address] [place] [address] [facility] [employer] [facility] H[facility]/PPO Address: [place] [address] [id number] [place] [address] [employer] HMO/PPO Address: [address] [place] [address] Advance Directives For more information, please contact: [phone] * Full Code (Latest Code Status on File) Date Activated Date Inactivated Comments 06/13/2024 7:15 AM 06/13/2024 1:06 PM * Full Code Date Activated Date Inactivated Comments 11/06/2023 2:54 AM 11/06/2023 8:08 PM * Full Code Date Activated Date Inactivated Comments 07/17/2023 11:19 AM 07/17/2023 6:40 PM * Full Code Date Activated Date Inactivated Comments 05/19/2022 9:38 AM 05/19/2022 3:05 PM * Full Code Date Activated Date Inactivated Comments 01/26/2020 7:34 AM 01/26/2020 1:23 PM Care Teams Supervisor Fabrication Department Relationship Specialty Start Date End Date Shakira Rivas NP [address] [facility] [address] [place] [address] PCP - General Family Medicine 07/18/24 Kirby Resendiz MD Generation Engineer Gastroenterology 03/31/18 [place] [address] [facility] [address] [place], [place] [address] Consulting Physician Obstetrics and Gynecology 07/12/19 [place] [address] [facility] [address] [place] [address] Consulting Physician Pulmonary Disease 09/07/20 Mannie Eden MD [address] [facility] [phone] [place] [address] Surgeon Colon and Rectal Surgery 10/15/20 Jie Boone PA [address] [place] [address] [address] [place] [address] Physician Outreach Specialist Orthopedic Surgery 07/17/23 Bruno Ortega MD [address] [place] [address] [address] [place] [address] Surgeon Orthopedic Surgery 11/06/23
--- OUTSIDE RECORDS SUMMARY | 2024-08-17 12:00 | XMS_ITS | Encounter Summary ---
Author Organization [facility] Address [address] [place] [address] Care Team Providers Care Bottom Crane Operator Name Role Phone Patel Stein NP Primary Care Provi edilma Kirby Resendiz MD Unavailable [phone] Paty Calix MD Unavailable [phone] Karla Valle MD Unavailable Vi Oliveira DO Primary Care Provider [phone] Patel Stein NP Unavailable [phone] Brendon Kapoor MD Unavailable Mannie Eden MD Unavailable [phone] Jie Boone Unavailable Seferino Mota MD Primary Care Provider Bruno Ortega MD Unavailable [phone] Shakira Rivas NP Primary Care Provider Encounter Details Date Type Department Care Team (Late st Contact Info) Description 05/14/2020 Telephone [facility] [address] [place] [address] Yvrose Irwin, RT Social History Tobacco Use Types Packs/Day Years Used Date Smoking Tobacco: Former Cigarettes 2006 Smokeless Tobacco: Never Alcohol Use Standard Drinks/Week Comments No 0 (1 standard drink = 0.6 oz pur e alcohol) PHQ-2 Answer Date Recorded PHQ-2 Total Score (If total score is 3 or more points, staff should administer the PHQ-9) 0 10/24/2019 Comments No Sex and Gender Information Value Date Recorded Sex Assigned at Not on file 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 [address] [place] [address] PCP - General Family Medicine 09/28/23 07/17/24 Shakira Rivas NP [address] [facility] [address] [place] [address] PCP - General Family Medicine 07/18/24 Kirby Resendiz MD Front Services Agent Gastroenterology 03/31/18 Paty Calix MD [address] [place], [place] [address] Referring Physician Gynecology 08/18/16 09/06/20 [place] [address] [facility] [facility] [address] [place] [address] Consulting Physician Obstetrics and Gynecology 07/12/19 [place] [address] [facility] [address] [place] [address] Nurse Practitioner Family Practice 09/07/20 09/07/20 [place] [address] [facility] [address] [place] [address] Consulting Physician Pulmonary Disease 09/07/20 Mannie Eden MD [address] [facility] [phone] [place] [address] Surgeon Colon and Rectal Surgery 10/15/20 Jie Boone PA [address] [place] [address] [address] [place] [address] Physician Botany Professor Orthopedic Surgery 07/17/23 Bruno Ortega MD [address] [place] [address] [address] [address] Surgeon Orthopedic Surgery 11/06/23 documented as of this encounter
--- OUTSIDE RECORDS SUMMARY | 2024-08-17 12:00 | XMS_ITS ---
Author Organization [facility] Address [address] [place] [address] Care Team Providers Care Wire Drawer Name Role Phone Unavailable Primary Care Provider Unavailabl e Active Problems Patient Care Coordination No te Formatting of this note migh t be different from the original. Prev 05/10/15 Problem Noted Date Diagnosed Date Abnormal biliary HIDA scan 11/01/2015 Elevated liver enzymes 11/01/2015 Liver lesion 11/01/2015 Abnormal MRI of abdomen 11/01/2015 Liver lesion, right lobe 10/25/2015 Overview (10/25/2015): 1.[address] MR ordered. Ovarian cyst, left 10/25/2015 Overview (10/25/2015): 5.[address] scan. Pelvic ultrasound ordered. Will refer to clinical technician Incidental pulmonary nodule, > 3mm and < 8mm 01/2016 Overview (10/25/2015): 5 mm right middle lobe. 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 Past Treatment and Therapy Plans No past plan information found. Lifetime Dose Tracking * Chemical Lifetime Dose Automatic Entry Manual Entr y Effective Dose 18.3 mSv 18.3 mSv 0 mSv Total DLP 1,077 DLP 1,077 DLP 0 DLP CTDIvol Max 21.2 mGy 21.2 mGy 0 mGy CTDIvol Min 21.2 mGy 21.2 mGy 0 mGy
--- OUTSIDE RECORDS SUMMARY | 2024-08-17 12:00 | XMS_ITS | Encounter Summary ---
Author Organization [facility] [employer] [facility] [place] [facility] Address [address] [place] [address] Phone Care Team Providers Care Cast Iron Dipper Name Role Phone Patel Stein NP Primary Care Provi edilma Kirby Resendiz MD Unavailable [phone] Paty Calix MD Unavailable [phone] Karla Valle MD Unavailable Vi Oliveira DO Primary Care Provider + [phone] Patel Stein NP Unavailable [phone] CourtneyyoBrendon chao MD Unavailable [phone] Mannie Eden MD Unavailable [phone] Jie Boone Unavailable Seferino Mota MD Primary Care Provider Bruno Ortega MD Unavailable [phone] Shakira Rivas NP Primary Care Provider Encounter Details Date Type Department Care Team (Late st Contact Info) Description 10/05/2017 Telephone [facility] Gastroenterology [address] [facility] [address] [place] [address] Kirby Resendiz MD [address] [place] [address] Social History Tobacco Use Types Packs/Day Years Used Date Smoking Tobacco: Former Smokeless Tobacco: Never Alcohol Use Standard Drinks/Week Comments No 0 (1 standard drink = 0.6 oz pur e alcohol) Comments No Sex and Gender Information Value Date Recorded Sex Assigned at Not on file 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 09/24/2019 09/24/2019 10/08/2019 3:0 5 AM CDT documented as of this encounter Care Teams Cast Iron Dipper Relationship Specialty Start Date End Date Patel Stein NP PCP - General Family Practice 08/27/16 09/06/20 [place] [address] [facility] [address] [place] [address] PCP - General Family Medicine 09/07/20 09/27/23 Seferino Mota MD [address] [place] [address] [address], [place] [address] PCP - General Family Medicine 09/28/23 07/17/24 Shakira Rivas NP [address] [facility] [address] [place] [address] PCP - General Family Medicine 07/18/24 Kirby Resendiz MD Mechanical Shop Laborer Gastroenterology 03/31/18 Paty Calix MD [address] [place], [place] [address] Referring Physician Gynecology 08/18/16 09/06/20 [place] [address] [facility] [address] [place] [address] Consulting Physician Obstetrics and Gynecology 07/12/19 [place] [address] [facility] [address] [place] [address] Nurse Practitioner Family Practice 09/07/20 09/07/20 [place] [address] [address] [address] [place] [address] Consulting Physician Pulmonary Disease 09/07/20 Mannie Eden MD [address] [facility] [phone] [place] [address] Surgeon Colon and Rectal Surgery 10/15/20 Jie Boone PA [address] [facility] [address] [place] [address] Physician Elementary Math Tutor Orthopedic Surgery 07/17/23 Bruno Ortega MD [address] [facility] [address] [address] Surgeon Orthopedic Surgery 11/06/23 documented as of this encounter
--- OUTSIDE RECORDS SUMMARY | 2024-08-17 12:00 | XMS_ITS | Encounter Summary ---
Author Organization [facility] [employer] [facility] Address [address] [place] [address] Phone Care Team Providers Care Yield Improvement Engineer Name Role Phone Patel Stein NP Primary Care Provi edilma Kirby Resendiz MD Unavailable [phone] Paty Calix MD Unavailable [phone] Karla Valle MD Unavailable Vi Oliveira DO Primary Care Provider + [phone] Patel Stein NP Unavailable [phone] CourtneyyoBrendon chao MD Unavailable [phone] Mannie Eden MD Unavailable [phone] Jie Boone Unavailable Seferino Mota MD Primary Care Provider Bruno Ortega MD Unavailable [phone] Shakira Rivas NP Primary Care Provider Encounter Details Date Type Department Care Team (Latest Contact Info) Description 09/01/2016 Orders Only [facility] CONVERSION Scanning, Provider Social History Tobacco Use Types Packs/Day Years Used Date Smoking Tobacco: Former Alcohol Use Standard Drinks/Week Comments No 0 (1 standard drink = 0.6 oz pur e alcohol) Comments Unknown Sex and Gender Information Value Date Recorded Sex Assigned at Not on file Legal Sex Female 12:02 AM SILVER STEWARD Gender Identity Female 12/22/2019 9:38 AM CDT Sexual Orientation Choose not to disclose 2019 9:38 AM CDT Sexual Orientation Straight 12/22/2019 9: 38 AM CDT documented as of this encounter Plan of Treatment Not on file documented as of this encounter Procedures Procedure Name Priority Date/Time Associated Diagnosis Comments OBSTETRIC/GYNECOLOGY ULTRASONOGRAPHY REPORT 09/01/2016 12:21 PM CDT documented in this encounter Results * OBSTETRIC/GYNECOLOGY ULTRASONOGRAPHY REPORT (09/01/2016 12:21 PM CDT) Anatomical Region Laterality Modality Ultrasound us Provider Scanning IMG OB US PROCEDURES Final Res ult documented in this encounter Visit Diagnoses Not on filedocumented in this encounter Additional Health Concerns Infection Onset Date Last Indicated Resolved Time COVID: Suspected 09/22/2019 09/22/2019 09/24/2019 3:03 AM CDT Respiratory Infection ([facility]ICA), contact + droplet Comment:Automatically added due to negative COVID-19 result. 09/24/2019 09/24/2019 10/08/2019 3:0 5 AM CDT documented as of this encounter Care Teams Yield Improvement Engineer Relationship Specialty Start Date End Date Patel Stein NP PCP - General Family Practice 08/27/16 09/06/20 [place] [id number] [address] PCP - General Family Medicine 09/07/20 09/27/23 Seferino Mota MD [address] [place] [address] [address] [place] [address] PCP - General Family Medicine 09/28/23 07/17/24 Shakira Rivas AIRPORT DRIVER [address] [place] [address] [address] [place] [address] PCP - General Family Medicine 07/18/24 Kirby Resendiz MD Actuarial Technician Gastroenterology 03/31/18 Paty Calix MD [address] [facility] [address] [place] [address] Referring Physician Gynecology 08/18/16 09/06/20 [place] [address] [facility] [address] [place] [address] Consulting Physician Obstetrics and Gynecology 07/12/19 [place] [address] [facility] [address] [place] [address] Nurse Practitioner Family Practice 09/07/20 09/07/20 [place] [address] [facility] [address] [place] [address] Consulting Physician Pulmonary Disease 09/07/20 Mannie Eden MD [phone] [place] [address] Surgeon Colon and Rectal Surgery 10/15/20 Jie Boone PA [address] [place] [address] [place] [address] Physician Top Carrier Orthopedic Surgery 07/17/23 Bruno Ortega MD [address] [place] [address] [place] [address] Surgeon Orthopedic Surgery 11/06/23 documented as of this encounter
--- OUTSIDE RECORDS SUMMARY | 2024-08-17 12:00 | XMS_ITS | Encounter Summary ---
Author Organization [facility] [facility] Address [address] [place] [address] Phone Care Team Providers Care Auto Clocks Repairer Name Role Phone Patel Stein NP Primary Care Provi edilma Kirby Resendiz MD Unavailable [phone] Paty Calix MD Unavailable [phone] Karla Valle MD Unavailable Vi Oliveira DO Primary Care Provider + [phone] Patel Stein NP Unavailable [phone] CourtneyyoBrendon chao MD Unavailable [phone] Mannie Eden MD Unavailable [phone] Jie Boone Unavailable Seferino Mota MD Primary Care Provider Bruno Ortega MD Unavailable [phone] Shakira Rivas NP Primary Care Provider Encounter Details Date Type Department Care Team (Latest Contact Info) Description 06/29/2017 Orders Only [facility] CONVERSION Scanning, Provider Social History Tobacco Use Types Packs/Day Years Used Date Smoking Tobacco: Former Smokeless Tobacco: Never Alcohol Use Standard Drinks/Week Comments No 0 (1 standard drink = 0.6 oz pur e alcohol) Comments No Sex and Gender Information Value Date Recorded Sex Assigned at Not on file Legal Sex Female 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 SERVICES MANAGER Gender Identity Female 12/22/2019 9:38 AM CDT Sexual Orientation Choose not to disclose 2019 9:38 AM CDT Sexual Orientation Straight 12/22/2019 9: 38 AM CDT documented as of this encounter Plan of Treatment Not on file documented as of this encounter Procedures Procedure Name Priority Date/Time Associated Diagnosis Comments OBSTETRIC/GYNECOLOGY ULTRASONOGRAPHY REPORT 06/29/2017 12:38 PM CDT documented in this encounter Results * OBSTETRIC/GYNECOLOGY ULTRASONOGRAPHY REPORT (06/29/2017 12:38 PM CDT) Anatomical Region Laterality Modality Ultrasound [...] documented as of this encounter Care Teams Auto Clocks Repairer Relationship Specialty Start Date End Date Patel Stein NP PCP - General Family Practice 08/27/16 09/06/20 [place] [id number] [address] PCP - General Family Medicine 09/07/20 09/27/23 Seferino Mota MD [address] [facility] [address] [place] [address] PCP - General Family Medicine 09/28/23 07/17/24 Shakira Rivas NP [address] [facility] [address] [place] [address] PCP - General Family Medicine 07/18/24 Kirby Resendiz MD Registered Nurse Post Partum Gastroenterology 03/31/18 Paty Calix MD [address] [place] [address] Referring Physician Gynecology 08/18/16 09/06/20 [place] [address] [address] [facility] [address] [place] [address] Consulting Physician Obstetrics and Gynecology 07/12/19 [place] [address] [address] [facility] [address] [place] [address] Nurse Practitioner Family Practice 09/07/20 09/07/20 [place] [address] [address] [facility] [address] [place] [address] Consulting Physician Pulmonary Disease 09/07/20 Mannie Eden MD [phone] [place] [address] Surgeon Colon and Rectal Surgery 10/15/20 Jie Boone PA [address] [facility] [address] [address] Physician Barrel Stave Inspector Orthopedic Surgery 07/17/23 Bruno Ortega MD [address] [place] [address] Surgeon Orthopedic Surgery 11/06/23 documented as of this encounter
--- OUTSIDE RECORDS SUMMARY | 2024-08-17 12:00 | XMS_ITS | Clinical Summary ---
Author Organization [facility] Address [address] [place] [address] Care Team Providers Care Data Architect Name Role Phone Kirby Resendiz MD Unavailable [phone] Karla Valle MD Unavailable Brendon Kapoor MD Unavailable Mannie Eden MD Unavailable [phone] Jie Boone Unavailable Bruno Ortega MD Unavailable [phone] Shakira Rivas NP Primary Care Provider Allergies No known active allergies Medications biotin 5,000 mcg tablet,disintegrating 1 tab daily 0 0 05/13/19 17 Active calcium (CALCIO SHAILESH) 500 mg tablet 500 mg. 0 12/04/19 [...] by mouth Active vitamin E 1,000 unit capsuleIndications:[facility] DGTS Take 1 capsule (1,000 Units total) by mouth nightly 11/06/19 24 029 Active omega 2-odf-mpf-fish oil 1,000 mg (120 mg-180 mg) capsuleIndications:[facility] VertiFlex Take 1 capsule (1,000 mg total) by [...] 1 tablet (137 mcg total) by mouth retail office associate before breakfast 90 tablet 3 07/19/19 25 [...] plan Assessment & Plan (03/30/2024 4:00 PM ANGLE SHEARER): - chronic condition - noted on chart [...] plan Assessment & Plan (03/30/2024 4:00 PM ANGLE SHEARER): Blood Pressure Management BP Readings from Last [...] 06/18/2023 Assessment & Plan (02/07/2023 1:24 PM ANGLE SHEARER): Elevated, trial of lisinopril. BP goal < 140/90. Simple chronic bronchitis 01/16/2022 Assessment & Plan (01/22/2022 8:23 PM ANGLE SHEARER): Asymptomatic. At baseline. Cont current meds. Class [...] diet Assessment & Plan (03/30/2024 3:46 PM ANGLE SHEARER): Wt Readings from Last 3 Encounters: 03/30/24 [...] hyperlipidemia Assessment & Plan (02/07/2023 1:22 PM ANGLE SHEARER): Weight reduction, daily exercise and dietary modifications recommended., as obesity can complicate their hypercholesterolemia Assessment & Plan (07/23/2022 10:43 AM CDT): Weight reduction, daily exercise and dietary modifications recommended., as obesity can complicate their hypercholesterolemia Assessment & Plan (01/22/2022 8:23 PM ANGLE SHEARER): Weight reduction, daily exercise and dietary modifications [...] 09/07/2020 Assessment & Plan (03/30/2024 3:51 PM ANGLE SHEARER): - chronic condition, stable status - no [...] Maxalt. Assessment & Plan (01/22/2022 8:23 PM ANGLE SHEARER): Clinically improved, continue current prescription medications. Assessment [...] specialists Assessment & Plan (03/30/2024 3:54 PM ANGLE SHEARER): - chronic condition, stable - follows with [...] 12/18/2016 Assessment & Plan (03/30/2024 3:58 PM ANGLE SHEARER): - hx of gastric ulcer, reportedly secondary [...] 05/15/2016 Assessment & Plan (02/07/2023 1:21 PM ANGLE SHEARER): Asymptomatic, continue vit d supplements. Assessment & [...] plan Assessment & Plan (03/30/2024 3:47 PM ANGLE SHEARER): - chronic condition - status: is adequately [...] 06/18/2023 Assessment & Plan (02/07/2023 1:20 PM ANGLE SHEARER): LDL at goal of less than 100, continue current prescription medications, atorvastatin. Assessment & Plan (07/23/2022 10:47 AM CDT): LDL at goal of less than 100, continue current prescription medications, atorvastatin. Assessment & Plan (01/22/2022 8:24 PM ANGLE SHEARER): LDL at goal of less than 100, [...] 05/13/2016 Assessment & Plan (03/30/2024 3:55 PM ANGLE SHEARER): - Personal hx-rectal/anal malignancy, H/o chemo and [...] scan. Pelvic ultrasound ordered. Will refer to mobile security architect Incidental pulmonary nodule, > 3mm and < [...] plan Assessment & Plan (03/30/2024 4:00 PM ANGLE SHEARER): Chronic condition. Asymptomatic. Stable. Continue current prescription [...] 01/27/2023 Assessment & Plan (02/07/2023 1:20 PM ANGLE SHEARER): Asymptomatic. Stable. Continue current prescription medications, levothyroxine. Assessment & Plan (07/23/2022 10:46 AM CDT): Stable. Cont. Current prescription medications, levothyroxine. Assessment & Plan (01/22/2022 8:23 PM ANGLE SHEARER): Asymptomatic. Stable. Continue current prescription medications. Assessment [...] (06/03/2021): Added automatically from request for surgery [id number] Elevated LFTs 01/15/2021 09/28/2023 Assessment & Plan (02/07/2023 1:21 PM ANGLE SHEARER): ALT near normal, asymptomatic, will continue to [...] (09/08/2019): Added automatically from request for surgery [id number] Thoracic arthritis 05/23/2019 Lung cyst 05/23/2019 09/07/2020 Bloating 06/11/2018 09/07/2020 Other constipation 06/11/2018 Depression with anxiety 03/31/201808/15 Situational mixed anxiety an d depressive disorder [...] 03/15/2013 09/28/2023 Generalized osteoarthritis 03/15/2013 0 09/28/2023 Encounters Date Type Department Care Team Description 07/21/2024 Telephone [facility] [address] [facility] [address] [place] [phone] Michelle Eli 07/20/2024 Telephone [facility] [address] [facility] [address] [place] [phone] Michelle Eli 07/18/2024 4:00 PM CDT Office Visit [facility] [address] [facility] [address] [place] [address] Shakira Rivas NP Establishing care with new doctor, encounter for (Primary Dx); Primary hypertension; Pre-diabetes; Acquired hypothyroidism; Pure hypercholesterolemia ; Irritable bowel syndrome with diarrhea; Gastroesophageal reflux disease, unspecified whether esophagitis present; Class 3 severe obesity due to excess calories without serious comorbidity with body mass index (BMI) of 40.0 to 44.9 in adult 07/18/2024 Orders Only [facility] Primary Care at [address] [place] [address] Shakira Rivas NP Well woman exam (Primary Dx) 06/14/2024 Results Follow-Up [facility] [address] [place] [address] Medical Office [address], [address] [place] [address] Cheryl Joy RN Surgical pathology 06/13/2024 8:00 AM CDT - 06/13/2024 8:30 AM CDT Surgery [facility] [address] [place] [phone] Kirby Resendiz MD COLON REMOVAL SNARE 06/13/2024 7:59 AM CDT Anesthesia Event [facility] [address] [place] [phone] Ghanshyam Sanders MD 06/13/2024 6:56 AM CDT - 06/13/2024 9:00 AM CDT Hospital Encounter [facility] [address] [place] [phone] Kirby Resendiz MD Hx of colonic polyps Discharge Disposition: Discharge to home or self care from Last 3 Months Immunizations Immunization Administration Dates Next Due Influenza, [...] (Arexvy) 01/28/2023 Tdap 10/18/2013 ZOSTER Recombinant 03/30/2023,01/28/2023 Surgical History Surgery Date Site/Laterality Comments TUBAL LIGATION 03/16/1985 - 03/15/1986 APPENDECTOMY 03/16/1978 - 03/15/1979 VARICOSE VEIN SURGERY 03/16/2004 - 03/15/2005 RECTAL EXAMINATION UNDER ANESTHESIA 11/15/2007 - 12/14/2007 biopsy anal canal ulcer RECTAL EXAMINATION UNDER ANESTHESIA 09/14/2007 - 10/14/2007 biopsy anal canal SKIN TAG REMOVAL 03/16/2007 - 04/15/2007 Excision anal skin tag/anal ulcer biopsy RECTAL TUMOR BY PROCTOTOMY EXCISION 03/16/2007 - 03/15/2008 rectal tumor: malignant/radiation therapy BREAST BIOPSY 04/17/2020 Left MANDIBLE FRACTURE SURGERY LAPAROSCOPIC CHOLECYSTECTOMY 03/16/2015 - 03/15/2016 FLUORO GUIDED INJECTION HIP RIGHT 09/24/2022 Right REPLACEMENT TOTAL HIP LATERA L POSITION 07/17/2023 Right Medical History Medical History Date Comments Osteoarthritis Hyperlipidemia Hypertension Rectal tumor 2007 Treated with rafaela mo and radiation. Pulmonary nodule Monitored with serial CTs and showed no change fomr 2013 to 2016 so no longer needs follow up imaging. History of therapeutic radiation 09/05/2016 Breast cyst History of underactive thyroid Frequent headaches Migraines COPD (chronic obstructive pu lmonary disease) (HCC) GERD (gastroesophageal reflux disease) Cancer (HCC) 2008 Thyroid disease 2009 Lung disease Family History Medical History Relation Name Comments Other Brother 1 varicosities; Alcohol abuse Daughter Gen Bardales Cancer Father Negrito Bardales Diabetes Father Negrito Bardales Diabetes melli tus; Diabetes type II Father Negrito Bardales Diabetes - Type II; Hyperlipidemia Father Negrito Bardales Hyperlipidem ia; Hypertension Father Negrito Bardales Hypertension; /Hypertension; Other Father Negrito Bardales varicosities; Diabetes Mother Katelin Bardales Hyperlipidemia Mother Katelin Bardales Hyperlip idemia; Hypertension Paternal Grandfather Jaciel Bardales Hype rtension; Breast cancer Paternal Grandmother Dhaval Bardales Colon cancer Paternal Grandmother Dhaval Bardales C ancer, colon; Diabetes Paternal Grandmother Dhaval Bardales D iabetes mellitus; Alcohol abuse Son Den Bardales Anesthesia problems Neg Hx Relation Name Status Comments Brother 1 Alive Brother 2 Alive Child 1 Child 2 Alive Child 3 Alive Daughter Gen Bardales Father Negrito Bardales Mother Katelni Bardales Alive Paternal Grandfather Jaciel Bardales Alive Paternal Grandmother Dhaval Bardales Son Den Bardaels Social History Tobacco Use Types Packs/Day Years Used Date Smoking Tobacco: Former Cigarettes 1 29.7 0 03/16/1977 - 11/12/2006 Smokeless Tobacco: Never Tobacco Cessation:Counseling Given: Yes Alcohol Use Standard Drinks/Week Comments No 0 (1 standard drink = 0.6 oz pur e alcohol) [facility] Utilities Answer Date Recorded In the past 12 months has e electric, gas, oil, or water company threatened to [...] often do you attend chur ch or adventist services? Never 11/06/2023 Do you belong to any clubs o r organizations such as restoration groups, unions, fraternal or athletic groups, or [...] any time in the past 12 m [facility], were you homeless or living in a retirement (including now)? No 11/06/2023 Personal Safety Answer [...] on file Legal Sex Female 12:02 AM ANGLE SHEARER Gender Identity Female 12/22/2019 9:38 AM CDT Sexual Orientation Choose not to disclose 2019 9:38 AM CDT Sexual Orientation Straight 12/22/2019 9: 38 AM CDT Obstetrics History Para Term AB IAB SAB Ectopic Multiple Livin g Live Births 3 3 3 2 3 Date Outcome GA Total Labor Labor/2nd/3rd Weight Sex Type Anes PTL Teresa A1 A5 Name Clin Term Term Term Last Filed Vital Signs Vital Sign Reading [...] 07/18/2024 3:08 PM CDT Plan of Treatment Health Maintenance Due Date Last Done Comments DTaP/Tdap/Td Vaccine (2 - Td or Tdap) 10/19/2023 10/18/2013 Breast Cancer Screening-Mammogram 11/18/2024 11/19/2023, 08/26/2022, 08/26/2022, Additional history exists Regular Well Visit/Exam 18-64 03/30/2025 03/30/2024, 01/22/2023, 01/16/2022, Additional history exists Covid-19 Vaccine ( season) 2025 01/28/2023, 04/03/2021, 06/26/2020, Additional history exists Postponed from 11/15/2023 (Patient declined, but will receive in the future) Depression Screening 07/18/2025 07/18/2024, 03/30/2024, 09/28/2023, Additional history exists Colon Cancer Screening-Colonoscopy 06/13/2026 06/13/2024, 05/19/2022, 01/26/2020, Additional history exists Hepatitis C Screening Completed 11/22/2015, 016 Pneumococcal vaccine <65 Completed 01/16/2022 Zoster Vaccine Completed 03/30/2023, 01/28/2023 Influenza Vaccine Completed 03/30/2024, , 01/03/2021, Additional history exists Hepatitis B Screening Completed 04/05/2024 Colon Cancer Screening-CT Colonography Discontinued 06/13/2024, 05/19/2022, 01/26/2020, Additional history exists Colon Cancer Screening-DNA Stool Discontinued 06/13/2024, 05/19/2022, 01/26/2020, Additional history exists Colon Cancer Screening-FIT Discontinued 06/13, 05/19/2022, 01/26/2020, Additional history exists Colon Cancer Screening-Sigmoidoscopy Discontinued 06/13/2024, 05/19/2022, 01/26/2020, Additional history exists Medical Devices Implanted Type Area Internet Sales Representative Device Identifier Shelf Expiration Date Model / Serial / Lot [employer] [place] 54mm 36mm Hip Neutral Liner Acetabular Altrx Sterile Latex Free [id number] - [id number] Implanted:Qty: 1 on 07/17/2023 by Bruno Ortega MD at [facility] Right: Hip [employer] [id number] 05/13/2028 [id number] / / [id number] [employer] [place] 54mm Sector Hip Shell Acetabular Gription Sterile Latex Free [id number] - [id number] Implanted:Qty: 1 on 07/17/2023 by Bruno Ortega MD at [facility] Right: Hip [employer] [id number] 04/15/2033 [id number] / / [id number] [employer] Actis Collar Hip 4 High Offset Stem Femoral [id number] - Sn/A - [id number] Implanted:Qty: 1 on 07/17/2023 by Bruno Ortega MD at [facility] Right: Hip [employer] [id number] 06/13/2033 [id number] / N/A / [id number] [employer] Articul/Gerry 36mm Cementless Hip +1.5mm 02/26 Taper Head Femoral Latex Free [id number] - [id number] Implanted:Qty: 1 on 07/17/2023 by Bruno Oretga MD at [facility] Right: Hip [employer] [id number] 05/13/2028 [id number] / / [id number] Procedures Procedure Name Priority Date/Time Associated Diagnosis [...] gastric) 06/13/2024 8:14 AM CDT Narrative PATHOLOGY [facility] - 06/14/2024 1:12 PM CDT [place] [address] Tele: Katyh Méndez MD - Reporting Manager Note to Patients: This report may contain [...] PATHOLOGY REPORT Patient Name: ADAM BARDALES Address: [address] [place] [address]- Gender: F : 1960 (Age: 63) Service: Gastro Location: [facility], Hospital #: [id number] Patient Type: [facility] Taken: 06/13/2024 Received 06/13/2024 Reported: 06/14/2024 Physician(s): Kirby Resendiz M.D. Vladimir Kessler M.D. Vi Oliveira D.O. DIAGNOSIS: Colon, polypectomy: - Polypoid mucosa with no histopathologic abnormality jap06/14/2024 13:12 Examining Pathologist: Kadeem Gustafson M.D. Report [...] levels are reviewed. Clerical Data Follows A; [id number] REPORT IMAGES AND/OR SCANNED DOCUMENTS ONLY VIEWABLE IN PDF FORMAT The immunohistochemical test(s) cited in this report, if any, was developed and its performance characteristics determined by [facility] Pathology Department. It has not been cleared or approved by the U.S. Food and Drug Administration. The FDA has determined that such clearance or approval is not necessary. This test is used for clinical purposes. It should not be regarded as investigational or for research. [facility] Laboratory is certified under the Clinical Laboratory [...] part or completely in the following laboratories: [facility], [address] [facility], [address], [address], [place] [address]. us Kirby Resendiz MD LAB PATHOLOGY ORDERABLES F inal Result PATHOLOGY [facility] Laboratory Receiving [address] [place] [address] * Colonoscopy (06/13/2024 7:54 AM CDT) Anatomical Region Laterality Modality Other Narrative Procedure Note Kirby Resendiz MD - 06/13/2024 7:54 AM CDT ENDOSCOPY LAB Patient Name: Adam Bardales Procedure Date: 06/13/2024 7:54 AM Admit Type: Outpatient Room: [facility] Date of : 1960 Instrument Name: [id number] [...] her next mammogram. Electronically signed by: PATRICK SUTHERLAND Narrative 11/19/2023 3:25 PM CDT EXAMINATION: SCREENING MAMMOGRAM [...] suspicious finding in either breast on mammogram. Vladimir Kessler MD IMG MAMMO PROCEDURES Fi nal Result * HEPATITIS C SCREENING (11/22/2015) HEP C Normal Historical Provider HEALTH MAINTENANCE Final Result from Last 3 Months or Most Recently Relevant to Health Maintenance Insurance [facility] Address: [address] [place] [address] [facility] Address: [place] [address] [facility] Address: [address] [place] [address] Advance Directives For more information, please contact: [phone] * Full Code (Latest Code Status on [...] 7:34 AM 01/26/2020 1:23 PM Care Teams Data Architect Relationship Specialty Start Date End Date Shakira Rivas WELDER AND FITTER [address] [facility] [address] [place] [address] PCP - General Family Medicine 07/18/24 Kirby Resendiz MD [facility] Gastroenterology 03/31/18 [place] [address] [facility] [address] [place] [address] Consulting Physician Obstetrics and Gynecology 07/12/19 [place] [address] [facility] [address] [place] [address] Consulting Physician Pulmonary Disease 09/07/20 Mannie Eden MD [phone] [place], [place] [id number] Surgeon Colon and Rectal Surgery 10/15/20 Jie Boone PA [address] [place] [address] [address] [place] [address] Physician Measurement Supervisor Orthopedic Surgery 07/17/23 Bruno Ortega MD [address] [facility] [address] [place] [address] Surgeon Orthopedic Surgery 11/06/23
--- OUTSIDE RECORDS SUMMARY | 2024-08-17 12:00 | XMS_ITS | Clinical Summary ---
Author Organization [facility] Address [address] [place] [address] Care Team Providers Care Special Education Teaching Assistant Name Role Phone Unavailable Primary Care Provider Unavailabl e Allergies No known active allergies Medications rizatriptan (MAXALT) 10 mg Tablet Take 1 Tab by mouth 1 time daily as needed. may repeat in 2 hours; max dose 30mg in 24 hours Active CALCIUM CARBONATE (LIZZETH-600 ORAL) Take 1 Tab by mouth daily. Active ascorbic acid (VITAMIN C) 500 mg tablet Take 1 Tab by mouth daily. Active cholecalciferol , Vitamin D3, (VITAMIN D3) 1,000 unit Capsule Take 1 Cap by mouth daily. Active FERROUS FUMARATE/VIT BCOMP&C (SUPER B COMPLEX ORAL) Take 1 Tab by mouth daily. Active vitamin E 400 unit capsule Take 1 Cap by mouth daily. Active Fish Oil-Enid-3 Fatty Acids (OMEGA 3 FISH OIL) 684-1,200 mg Capsule, Delayed Release(E.C.) Take 1 Cap by mouth daily. Active BIOTIN ORAL Take 1 Tab by mouth daily. Active albuterol 90 mcg/Actuation HFA inhalerIndicati ons:Bronchitis Take 2 Puffs by inhalation 4 times daily as needed for Shortness of Breath. 8.5 Gram 0 4 Active buPROPion HCl (WELLBUTRIN XL) 150 mg Extended Release 24 hour tablet 1 Tab daily. 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 90 Tab 3 5 Active lorcaserin (BELVIQ) 10 mg Tablet Take 10 mg by mouth 2 times daily. 60 Tablet 3 5 Active valACYclovir (VALTREX) 1 gram tablet 1 Tablet 2 times daily. 5 Active DULoxetine (CYMBALTA) 60 mg Capsule, Delayed Release(E.C.) Take 1 Capsule (60 mg) by mouth daily. 90 Capsule 3 6 Active ondansetron (ZOFRAN ODT) 4 mg Tablet, Rapid Dissolve Place 1 Tablet (4 mg) under tongue every 8 hours as needed for Nausea/Emesis. 10 Tablet 0 6 Active traZODone (DESYREL) 100 mg tabletIndicatio ns:Insomnia due to medical condition Take 1 Tablet (100 mg) by mouth daily at bedtime. 90 Tablet 0 6 Active HYDROcodone-mil taminophen (NORCO) 5-325 mg tablet Take 1 Tablet by mouth every 6 hours as needed for Pain, Moderate ABD PAIN. Max Daily Amount: 4 Tablet 60 Tablet 0 6 Active oxyCODONE-aceta minophen (PERCOCET) 5-325 mg tablet Take 1-2 Tablet by mouth every 6 hours as needed for Pain. Max Daily Amount: 8 Tablet 40 Tablet 0 6 Active LEVOTHYROXINE 150 mcg tablet TAKE ONE TABLET (150MG) BY MOUTH EVERY MORNING 90 Tablet 3 6 Active simvastatin (ZOCOR) 10 mg tablet TAKE 1 TABLET BY MOUTH DAILY LATE 90 Tablet 4 7 Active propranolol (INDERAL LA) 60 mg Long Acting 24 hour capsule Take 1 Capsule (60 mg) by mouth daily. 30 Capsule 7 Active Active Problems Patient Care Coordination No te [...] scan. Pelvic ultrasound ordered. Will refer to ob/gyn doctor Incidental pulmonary nodule, > 3mm and < 8mm 01/2016 Overview (10/25/2015): 5 mm right middle lobe. 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 Nonintractable migraine 01/04/2015 BMI 36.0-36.9,adult 07/04/2013 Colorectal cancer 07/04/2013 Hyperlipemia 07/04/2013 Depression 07/04/2013 Immunizations Immunization Administration Dates Next Due Influenza Seasonal Unspecified Formulation IM ,01/23/2013 Influenza Vaccine Split 3+ Yrs IM 01/04/2014 Family History Medical History Relation Name Comments Healthy Brother 1 Healthy Brother 2 Healthy Father Healthy Mother Relation Name Status Comments Brother 1 Alive Brother 2 Alive Father Alive Mother Alive Social History Tobacco Use Types Packs/Day Years Used Date Smoking Tobacco: Former Cigarettes 1 25 0 07/04/1981 - 07/04/2006 Smokeless Tobacco: Never Alcohol Use Standard Drinks/Week Comments No 0 (1 standard drink = 0.6 oz pur e alcohol) Comments No Sex and Gender Information Value Date Recorded Sex Assigned at Not on file Legal Sex Female 12:39 PM CDT Gender Identity Not on file Sexual Orientation Not on file Last Filed Vital Signs Vital Sign Reading Time Taken Comments Blood Pressure 134/70 12/27/2015 9:06 AM CDT lft wrist Pulse 59 12/27/2015 9:06 AM CDT Temperature 36.4 C (97.6 F) 12/12/2015 11:27 AM CDT Respiratory Rate 18 12/12/2015 11:27 AM CDT Oxygen Saturation 96% 12/12/2015 11:27 AM CDT Inhaled Oxygen Concentration - - Weight 106.6 kg (235 lb) 12/27/2015 9:06 AM CDT Height 172.7 cm (5' 8) 12/27/2015 9:06 AM CDT Body Mass Index 35.73 12/27/2015 9:06 AM CDT Plan of Treatment Health Maintenance Due Date Last Done Comments DTAP/TDAP/TD VACCINES (1 - Tdap) 1981 ZOSTER VACCINE (1 of 2) 1981 HPV/Cotest (-29) 08/12/1983 CERVICAL CANCER SCREENING 1992 HPV/Cotest (30-65) 1992 PAP SMEAR 1992 BREAST CANCER SCREENING 06/05/2016 06/06/2015 RSV VACCINE (60+ or ) (1 - Risk 60-74 years 1-dose series) 2022 INFLUENZA VACCINE (#1) 2023 9, 12/03/2017, 12/18/2016, Additional history exists Procedures Procedure Name Priority Date/Time Associated Diagnosis Comments MAMMO SCREEN BILAT W OR WO CAD Routine 06/06/2015 Encounter for screening mammogram for malignant neoplasm of breast from Last 3 Months or Most Recently Relevant to Health Maintenance Results * MAMMO DIGITAL SCREEN BILAT (06/06/2015) Anatomical Region Laterality Modality Breast Bilateral Other William Herrera MD MAMMO ORDERABLES Final Result from Last 3 Months or Most Recently Relevant to Health Maintenance Insurance Advance Directives For more information, please contact: [phone] * Full Code (Latest Code Status on File) Date Activated Date Inactivated Comments 12/12/2015 8:47 AM 12/12/2015 2:06 PM * Full Code Date Activated Date Inactivated Comments 12/12/2015 6:53 AM 12/12/2015 8:47 AM * Full Code Date Activated Date Inactivated Comments 12/12/2015 5:33 AM 12/12/2015 6:53 AM
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
[2024-08-17 13:07] VITALS: BP 157/84; PULSE 76; RESP 18; TEMP 36.6; O2SAT 97
== END 2024-08-17 13:07 | disposition home or self-care (01) ==
PROVIDERS: Emergency Provider Internal Medicine Critical Care Medicine
DX: M79.642 Pain in left hand (principal); E03.9 Hypothyroidism, unspecified; Z85.038 Personal history of other malignant neoplasm of large intestine; V40.0XXA Car driver injured in collision with pedestrian or animal in nontraffic accident, initial encounter
CPT/HCPCS: 73130; 99283